=== PATIENT | female | born 1980 | race Caucasian/White ===

== ENCOUNTER 2018-02-17 09:11 | Day surgery (SDC) | payer BC ==
[~2018-02-17 09:11] MED LIST: Lactated Ringers 1,000 ML IV SCH; Lidocaine 2% 5 ML SDV ONE; Midazolam 1 MG/ML 2 ML SDV ONE; Propofol 200 MG/20 ML SDV ONE; fentaNYL 250 MCG/5 ML SDV ONE
--- NOTE | 2018-02-17 09:46 | PCM.PREANE ---
Preanesthetic Assessment - Procedure Proposed Procedure: Hysteroscopy, D and C - Anesthesia/Transfusion/Family Hx Anesthesia History: Prior Anesthesia Without Reaction Family History of Anesthesia Reaction: No Transfusion History: No Prior Transfusion(s) Intubation History: Unknown - Review of Systems General: No Symptoms Pulmonary: Other (E cigarettes daily) Cardiovascular: Other (HTN) Gastrointestinal: Other (IBS) Neurological: Other (back pain; disc disease - lumbar) Other: Reports: Anxiety - Physical Assessment NPO Status Date: 02/16/18 NPO Status Time: 22:00 Height: 5 ft 3.5 in Weight: 211 lb ASA Class: 2 Mental Status: Alert & Oriented x3 Airway Class: Mallampati = 1 Dentition: Reports: Normal Dentition Thyro-Mental Finger Breadths: 4 Mouth Opening Finger Breadths: 3 ROM/Head Extension: Full Lungs: Clear to Auscultation, Normal Respiratory Effort Cardiovascular: Regular Rate, Regular Rhythm, No Murmurs - Lab Values: Laboratory Last Values Urine HCG, Qual NEGATIVE (NEGATIVE) 02/17/18 09:23 - Allergies Allergies/Adverse Reactions: Allergies Allergy/AdvReac Type Severity Reaction Status Date / Time No Known Allergies Allergy Verified 02/12/18 14:15 - Blood Blood Available: No Product(s) Available: None - Anesthesia Plan Pre-Op Medication Ordered: None - Acknowledgements Anesthesia Type Planned: General Anesthesia (LMA) Pt an Appropriate Candidate for the Planned Anesthesia: Yes Alternatives and Risks of Anesthesia Discussed w Pt/Guardian: Yes Pt/Guardian Understands and Agrees with Anesthesia Plan: Yes PreAnesthesia Questionnaire Cardiovascular History: Reports: Hypertension Gastrointestinal History: Reports: Irritable Bowel Syndrome Genitourinary History: Reports: Renal Calculus 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: Musculoskeletal History: Reports: Back Pain, Chronic, Fracture Other Musculoskeletal History: 3 herniated discs Psychiatric History: Reports: Anxiety Endocrine/Metabolic History: Reports: Obesity/BMI 30+ - Past Surgical History Head Surgeries/Procedures: Reports: None GI Surgical History: Reports: Cholecystectomy, Colonoscopy Female Surgical History: Reports: Tubal Ligation Musculoskeletal Surgical History: Reports: Other (See Below) Other Musculoskeletal Surgeries/Procedures:: surgical tx for fx wrist, removal of hardware to wrist - SUBSTANCE USE Smoking Status *Q: Current Every Day Smoker Tobacco Use Within Last Twelve Months: Other (See Below) Other Tobacco Use Within Last Twelve Months: E cigarettes Recreational Drug Use History: No - HOME MEDS Home Medications: Home Meds hydrOXYzine HCl [hydrOXYzine] 25 mg PO DAILY PRN 02/12/18 [History] hydroCHLOROthiazide [Hydrochlorothiazide] 12.5 mg PO DAILY 02/12/18 [History] - CURRENT (IN HOUSE) MEDS Current Meds: Current Medications Lactated Ringer's (Ringers, Lactated) 1,000 mls @ 150 mls/hr IV ASDIRECTED DOYLE Discontinued Medications Fentanyl (Sublimaze) Confirm Administered Dose 250 mcg .ROUTE .STK-MED ONE Stop: 02/17/18 09:09 Lidocaine (Xylocaine-Mpf 2%) Confirm Administered Dose 10 ml .ROUTE .STK-MED ONE Stop: 02/17/18 09:09 Midazolam HCl (Versed 1 Mg/Ml) Confirm Administered Dose 2 mg .ROUTE .STK-MED ONE Stop: 02/17/18 09:09 Propofol (Diprivan 20 Ml) Confirm Administered Dose 400 mg .ROUTE .STK-MED ONE Stop: 02/17/18 09:09
[2018-02-17] MEDS ORDERED: Ferric Subsulfate Topical Soln 8 GM (8 ML) Bottle ONE (10:58)
[2018-02-17] MEDS ORDERED: fentaNYL 100 MCG/2 ML SDV IVPUSH PRN (11:14)
--- NOTE | 2018-02-17 11:30 | PCM.OPNOTE ---
- General Post-Op/Procedure Note Date of Surgery/Procedure: 02/17/18 Operative Procedure(s): Hysteroscopy Dilatation and Currettage Findings: EUA_ 8 week sized anteverted uterus Hysteroscopy showed Bilateral tubal ostia Abundant fluffy endometrium Pre Op Diagnosis: 37 yo P3 with abnormal uterine bleeding Post-Op Diagnosis: same Anesthesia Technique: General LMA Primary Surgeon: Du Recinos Pathology: endometrial currettings Fluid Replacement, Intraop: 800 EBL in mLs: 0 Complications: None Condition: Good
--- NOTE | 2018-02-17 11:35 | PCM.POSTAN ---
POST ANESTHESIA ASSESSMENT - MENTAL STATUS Mental Status: Alert - RESPIRATORY Respiratory Status: Respiratory Rate WNL, Airway Patent, O2 Saturation Stable - CARDIOVASCULAR CV Status: Pulse Rate WNL, Blood Pressure Stable - GASTROINTESTINAL GI Status: No Symptoms - PAIN Pain Score: 0 - POST OP HYDRATION Hydration Status: Adequate & Stable - OBSERVATIONS Free Text/Narrative:: no anesthesia problems
--- NOTE | 2018-02-19 08:29 | OR ---
SURGEON: RADHA ESPITIAUZOROHANWE DATE OF PROCEDURE: 02/17/2018 PREOPERATIVE DIAGNOSIS: Abnormal uterine bleeding. POSTOPERATIVE DIAGNOSIS: Abnormal uterine bleeding. IV FLUIDS: 800. ESTIMATED BLOOD LOSS: Minimal. FINDINGS: EUA shows normal size anteverted uterus. Hysteroscopy showed endometrial and bilateral ostia, which was normal and some sloughing in the endometrium. BRIEF HISTORY ABOUT THE PATIENT: The patient came in complaining of abnormal uterine bleeding. She was having very irregular periods. She had an ultrasound showed a thickened endometrium with heterogenous cystic area on the left cornua. The patient was given the option for saline-enhanced sonogram versus D and C and hysteroscopy. The patient opted for D and C and hysteroscopy. PROCEDURE IN DETAIL: The patient was taken to the operating room where general anesthesia was administered without difficulty. She was placed in the dorsal lithotomy position with the Waylon stirrups. An examination under anesthesia revealed the above-noted findings. A weighted speculum was inserted into the posterior aspect of the vagina. The single-tooth tenaculum was used to grasp the anterior lips of the cervix. The uterus was carefully sounded to about 9 cm. The cervical os was dilated so a MyoSure hysteroscope was introduced under direct visualization. The uterus was distended with normal saline. The aforementioned finding was noted. MyoSure was placed through the hysteroscope channel to assist with some curettage with MyoSure hysteroscope. The hysteroscope was then withdrawn and the curette was placed in and the uterus was curetted in a clockwise fashion until a gritty feeling was noted in all aspects of the uterus. The specimen was sent for pathology. The tenaculum was removed from the cervix and good hemostasis was noted at the puncture site. The patient tolerated the procedure well. All instrument and sponge count were correct x2. The patient was awakened from general anesthesia and was sent to the recovery room in stable condition. She will follow up at . [facility] / [facility]ORGE A /[id number]
== END 2018-02-17 12:45 | disposition home or self-care (01) ==
LOC: MW.SDS 09:11
PROVIDERS: ATTEND Obstetrics & Gynecology
DX: N85.01 Benign endometrial hyperplasia (principal); I10 Essential (primary) hypertension; E66.9 Obesity, unspecified; Z68.35 Body mass index [BMI] 35.0-35.9, adult; F17.290 Nicotine dependence, other tobacco product, uncomplicated; F41.9 Anxiety disorder, unspecified; Z79.899 Other long term (current) drug therapy
CPT/HCPCS: 58558; 81025; 88305; J2250; J2704; J3010; J7120; 00952

== ENCOUNTER 2020-04-25 12:00 | Day surgery (SDC) | payer BC ==
[~2020-04-25 12:00] MED LIST changes: +Sodium Chloride 0.9% 10 ML SDV IV PRN; +Sodium Chloride 0.9% 10 ML Syringe FLUSH PRN; +Sodium Chloride 0.9% 2.5 ML Syringe FLUSH PRN; +fentaNYL 100 MCG/2 ML SDV ONE; -fentaNYL 250 MCG/5 ML SDV ONE
--- NOTE | 2020-04-25 12:27 | PCM.PREANE ---
Preanesthetic Assessment - Anesthesia/Transfusion/Family Hx Anesthesia History: Prior Anesthesia Without Reaction Family History of Anesthesia Reaction: No Transfusion History: No Prior Transfusion(s) Intubation History: Unknown - Review of Systems General: No Symptoms Pulmonary: No Symptoms Cardiovascular: No Symptoms Gastrointestinal: No Symptoms, Other (2 polyps 5 years ago) Neurological: No Symptoms Other: Reports: None - Physical Assessment Vital Signs: Last Vital Signs Temp 35.8 C L 04/25/20 12:15 Pulse 99 04/25/20 12:15 Resp 16 04/25/20 12:15 BP 126/84 04/25/20 12:15 Pulse Ox 96 04/25/20 12:15 Height: 5 ft 4 in Weight: 92.986 kg ASA Class: 2 Mental Status: Alert & Oriented x3 Airway Class: Mallampati = 2 Dentition: Reports: Normal Dentition Thyro-Mental Finger Breadths: 3 Mouth Opening Finger Breadths: 3 ROM/Head Extension: Full Lungs: Clear to Auscultation, Normal Respiratory Effort Cardiovascular: Regular Rate, Regular Rhythm - Lab Values: Laboratory Last Values Urine HCG, Qual NEGATIVE (NEGATIVE) 04/25/20 12:10 - Allergies Allergies/Adverse Reactions: Allergies Allergy/AdvReac Type Severity Reaction Status Date / Time Dairy Products Allergy Stomach Verified 04/25/20 12:20 Upset - Blood Blood Available: No - Anesthesia Plan Pre-Op Medication Ordered: None - Acknowledgements Anesthesia Type Planned: MAC Pt an Appropriate Candidate for the Planned Anesthesia: Yes Alternatives and Risks of Anesthesia Discussed w Pt/Guardian: Yes Pt/Guardian Understands and Agrees with Anesthesia Plan: Yes PreAnesthesia Questionnaire HEENT History: Reports: Other (See Below) Other HEENT History: reading glasses Cardiovascular History: Reports: Hypertension Respiratory History: Reports: None Gastrointestinal History: Reports: Colon Polyp, Irritable Bowel Syndrome Genitourinary History: Reports: Renal Calculus 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: Musculoskeletal History: Reports: Arthritis, Fracture, Other (See Below) (h/o rheumatoid arthritis as [place]- went away on its own) Other Musculoskeletal History: 3 herniated discs, hx fx rt wrist, Neurological History: Reports: Concussion Psychiatric History: Reports: Anxiety, Depression Endocrine/Metabolic History: Reports: Obesity/BMI 30+ (BMI 35.2) Hematologic History: Reports: None Immunologic History: Reports: None Oncologic (Cancer) History: Reports: None Dermatologic History: Reports: None - Infectious Disease History Infectious Disease History: Reports: None - Past Surgical History Head Surgeries/Procedures: Reports: None HEENT Surgical History: Reports: None Cardiovascular Surgical History: Reports: None Respiratory Surgical History: Reports: None GI Surgical History: Reports: Cholecystectomy, Colonoscopy (5 years ago - 2 polyps) Female Surgical History: Reports: Tubal Ligation Other Female Surgeries/Procedures: ovarian cystectomy Endocrine Surgical History: Reports: None Neurological Surgical History: Reports: None Musculoskeletal Surgical History: Reports: Other (See Below) Other Musculoskeletal Surgeries/Procedures:: surgical tx for fx wrist, removal of hardware to wrist Oncologic Surgical History: Reports: None Dermatological Surgical History: Reports: None - SUBSTANCE USE Tobacco Use Status *Q: Light Tobacco User Tobacco Use Within Last Twelve Months: Vaping Recreational Drug Use History: No - HOME MEDS Home Medications: Home Meds Lisinopril/Hydrochlorothiazide [Lisinopril-Hctz 20-25 mg Tab] 1 tab PO DAILY 04/19/20 [History] Sertraline HCl 100 mg PO DAILY 04/19/20 [History] - CURRENT (IN HOUSE) MEDS Current Meds: Current Medications Lactated Ringer's (Ringers, Lactated) 1,000 mls @ 125 mls/hr IV ASDIRECTED DOYLE Last Admin: 04/25/20 12:21 Dose: 125 mls/hr Documented by: Sodium Chloride (Saline Flush) 10 ml FLUSH ASDIRECTED PRN PRN Reason: Keep Vein Open Sodium Chloride (Saline Flush) 2.5 ml FLUSH ASDIRECTED PRN PRN Reason: Keep Vein Open Sodium Chloride (Saline Flush) 10 ml FLUSH ASDIRECTED PRN PRN Reason: Keep Vein Open Sodium Chloride (Saline Flush) 2.5 ml FLUSH ASDIRECTED PRN PRN Reason: Keep Vein Open Sodium Chloride (Normal Saline) 10 ml IV ASDIRECTED PRN PRN Reason: IV Use Discontinued Medications Fentanyl (Sublimaze) Confirm Administered Dose 100 mcg .ROUTE .STK-MED ONE Stop: 04/25/20 11:42 Lidocaine (Xylocaine-Mpf 2%) Confirm Administered Dose 5 ml .ROUTE .STK-MED ONE Stop: 04/25/20 11:42 Midazolam HCl (Versed 1 Mg/Ml) Confirm Administered Dose 2 mg .ROUTE .STK-MED ONE Stop: 04/25/20 11:42 Propofol (Diprivan 20 Ml) Confirm Administered Dose 400 mg .ROUTE .STK-MED ONE Stop: 04/25/20 11:42
--- NOTE | 2020-04-25 13:23 | PCM.POSTAN ---
POST ANESTHESIA ASSESSMENT - MENTAL STATUS Mental Status: Alert, Oriented - VITAL SIGNS Vital Signs: Last Vital Signs Temp 35.8 C L 04/25/20 12:15 Pulse 72 04/25/20 13:16 Resp 17 04/25/20 13:16 BP 98/67 04/25/20 13:16 Pulse Ox 95 04/25/20 13:16 - RESPIRATORY Respiratory Status: Respiratory Rate WNL, Airway Patent, O2 Saturation Stable - CARDIOVASCULAR CV Status: Pulse Rate WNL, Blood Pressure Stable - GASTROINTESTINAL GI Status: No Symptoms - PAIN Pain Score: 0 - POST OP HYDRATION Hydration Status: Adequate & Stable - OBSERVATIONS Free Text/Narrative:: No anesthesia problems
--- NOTE | 2020-04-25 13:24 | PCM.OPNOTE ---
- General Post-Op/Procedure Note Date of Surgery/Procedure: 04/25/20 Operative Procedure(s): Diagnostic colonoscopy Findings: Descending colon polyp Pre Op Diagnosis: History of colon polyps Post-Op Diagnosis: Descending colon polyp Anesthesia Technique: MAC Primary Surgeon: Ritika Llanes Condition: Good Free Text/Narrative:: Intake & Output 04/24/20 04/25/20 04/25/20 22:59 06:59 14:59 Intake Total 500 Balance 500
--- NOTE | 2020-04-25 13:38 | PCM48HPAN ---
Post Anesthesia Note - EVALUATION WITHIN 48HRS OF ANESTHETIC Vital Signs in Normal Range: Yes Patient Participated in Evaluation: Yes Respiratory Function Stable: Yes Airway Patent: Yes Cardiovascular Function Stable: Yes Hydration Status Stable: Yes Pain Control Satisfactory: Yes Nausea and Vomiting Control Satisfactory: Yes Mental Status Recovered: Yes Vital Signs: Last Vital Signs Temp 36.4 C 04/25/20 13:25 Pulse 86 04/25/20 13:25 Resp 14 04/25/20 13:25 BP 110/80 04/25/20 13:25 Pulse Ox 95 04/25/20 13:25 - COMMENTS/OBSERVATIONS Free Text/Narrative:: No anesthesia problems
--- NOTE | 2020-04-25 14:07 | OR ---
SURGEON: RITIKA LLANES MD DATE OF PROCEDURE: 04/25/2020 PREOPERATIVE DIAGNOSIS: History of colon polyps. POSTOPERATIVE DIAGNOSIS: Descending colon polyp. PROCEDURE PERFORMED: Diagnostic colonoscopy with polypectomy. PRIMARY SURGEON: Ritika Llanes MD ANESTHESIA: MAC. INSTRUMENT USED: Olympus colonoscope. EXTENT OF EXAM: To the cecum. PREPARATION: Good. LIMITATIONS: None. INDICATIONS FOR EXAMINATION: The patient is a 39-year-old female with a history of colon polyps. She is due for a repeat colonoscopy. I explained the procedure, expected perioperative course, and the risks. She verbalized understanding and wishes to proceed. PROCEDURE IN DETAIL: The patient was brought into the endoscopy suite and placed in the left lateral decubitus position. A time-out was completed verifying the patient's name, age, date of , allergies, and procedure to be performed. Monitored anesthesia care was induced and continuous oxygen was provided via nasal cannula throughout the procedure. After adequate sedation was achieved, a digital rectal exam was performed. This exam was within normal limits. A well-lubricated colonoscope was inserted in the rectum and advanced under direct visualization to the level of the cecum. The cecum was identified by both visual and anatomic landmarks. A photograph was taken of the cecal cap; however, I was unable to retroflex the scope within the cecum due to looping of the scope more proximally. The scope was then fully withdrawn while examining the color, texture, anatomy, and integrity of the mucosa from the cecum to the anal canal. The patient was found to have a proximal descending colon polyp which was small and sessile. This was removed in piecemeal fashion using cold biopsy forceps. The remainder of the colonoscopy was normal. The scope was then brought into the rectum and retroflexed to allow visualization of the anal canal opening. This appeared normal and a photograph was taken. The scope was then straightened out and fully withdrawn. The cecum to anus time was 10 minutes. The patient tolerated the procedure well and was transferred to PACU in stable condition. ENDOSCOPIC DIAGNOSIS: Descending colon polyp. RECOMMENDATIONS: Follow up in clinic in 2 weeks. ERNESTO JULES /[id number]
== END 2020-04-25 13:46 | disposition home or self-care (01) ==
LOC: MW.SDS 12:00
PROVIDERS: ATTEND Surgery
DX: Z12.11 Encounter for screening for malignant neoplasm of colon (principal); K63.5 Polyp of colon; I10 Essential (primary) hypertension; F41.9 Anxiety disorder, unspecified; F32.9 Major depressive disorder, single episode, unspecified; E66.9 Obesity, unspecified; Z68.35 Body mass index [BMI] 35.0-35.9, adult; Z91.011 Allergy to milk products; Z90.49 Acquired absence of other specified parts of digestive tract; Z98.890 Other specified postprocedural states; Z79.899 Other long term (current) drug therapy
CPT/HCPCS: 45380; 81025; J2001; J2250; J2704; J3010; J7120; 00812; 88305

== ENCOUNTER 2020-06-27 06:37 | Day surgery (SDC) | payer BC ==
[~2020-06-27 06:37] MED LIST changes: -Lidocaine 2% 5 ML SDV ONE; -Midazolam 1 MG/ML 2 ML SDV ONE; -Propofol 200 MG/20 ML SDV ONE; -Sodium Chloride 0.9% 10 ML SDV IV PRN; -Sodium Chloride 0.9% 10 ML Syringe FLUSH PRN; -Sodium Chloride 0.9% 2.5 ML Syringe FLUSH PRN; +ceFAZolin 2 GM in Premix Bag 1 BAG IV ONE; -fentaNYL 100 MCG/2 ML SDV ONE
[2020-06-27] MEDS ORDERED: Midazolam 1 MG/ML 2 ML SDV ONE (06:40)
[2020-06-27] MEDS ORDERED: Propofol 200 MG/20 ML SDV ONE (06:40)
[2020-06-27] MEDS ORDERED: fentaNYL 250 MCG/5 ML SDV ONE (06:42)
[2020-06-27] MEDS ORDERED: Ondansetron 4 MG/2 ML SDV ONE (06:52)
[2020-06-27] MEDS ORDERED: Dexamethasone 4 MG/ML 5 ML MDV ONE (06:52)
[2020-06-27] MEDS ORDERED: ceFAZolin 1 GM Vial ONE (06:59)
[2020-06-27] MEDS ORDERED: Sodium Chloride 0.9% 20 ML ONE (06:59)
[2020-06-27] MEDS ORDERED: Succinylcholine/Sod PF 100 MG/5 ML SYRINGE IV ONE (07:21)
[2020-06-27] MEDS ORDERED: Rocuronium Bromide 50 MG/5 ML Syringe ONE (07:21)
--- NOTE | 2020-06-27 07:22 | PCM.PREANE ---
Preanesthetic Assessment - Anesthesia/Transfusion/Family Hx Anesthesia History: Prior Anesthesia Without Reaction Family History of Anesthesia Reaction: No Transfusion History: No Prior Transfusion(s) Intubation History: Unknown - Review of Systems General: No Symptoms Pulmonary: No Symptoms Cardiovascular: No Symptoms Gastrointestinal: No Symptoms Neurological: No Symptoms Other: Reports: None - Physical Assessment Height: 5 ft 4.5 in Weight: 92.079 kg ASA Class: 2 Mental Status: Alert & Oriented x3 Airway Class: Mallampati = 3 Dentition: Reports: Normal Dentition Thyro-Mental Finger Breadths: 3 Mouth Opening Finger Breadths: 2 ROM/Head Extension: Full Lungs: Clear to Auscultation, Normal Respiratory Effort Cardiovascular: Regular Rate, Regular Rhythm - Allergies Allergies/Adverse Reactions: Allergies Allergy/AdvReac Type Severity Reaction Status Date / Time Dairy Products Allergy Stomach Verified 06/21/20 09:22 Upset - Blood Blood Available: No - Anesthesia Plan Pre-Op Medication Ordered: None - Acknowledgements Anesthesia Type Planned: General Anesthesia Pt an Appropriate Candidate for the Planned Anesthesia: Yes Alternatives and Risks of Anesthesia Discussed w Pt/Guardian: Yes Pt/Guardian Understands and Agrees with Anesthesia Plan: Yes PreAnesthesia Questionnaire HEENT History: Reports: Other (See Below) Other HEENT History: reading glasses Cardiovascular History: Reports: Hypertension Respiratory History: Reports: None Gastrointestinal History: Reports: Colon Polyp, Irritable Bowel Syndrome Genitourinary History: Reports: Renal Calculus 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: Musculoskeletal History: Reports: Arthritis, Back Pain, Chronic, Fracture, Other (See Below) Other Musculoskeletal History: 3 herniated discs, hx fx rt wrist, Neurological History: Reports: Concussion Psychiatric History: Reports: Anxiety, Depression Endocrine/Metabolic History: Reports: Obesity/BMI 30+ (BMI 34.3) Hematologic History: Reports: None Immunologic History: Reports: None Oncologic (Cancer) History: Reports: None Dermatologic History: Reports: None - Infectious Disease History Infectious Disease History: Reports: None - Past Surgical History Head Surgeries/Procedures: Reports: None HEENT Surgical History: Reports: None Cardiovascular Surgical History: Reports: None Respiratory Surgical History: Reports: None GI Surgical History: Reports: Cholecystectomy, Colonoscopy Female Surgical History: Reports: Tubal Ligation, Other (See Below) Other Female Surgeries/Procedures: hysteroscopy Endocrine Surgical History: Reports: None Neurological Surgical History: Reports: None Musculoskeletal Surgical History: Reports: Carpal Tunnel (right), Other (See Below) Other Musculoskeletal Surgeries/Procedures:: surgical tx for fx wrist, removal of hardware to wrist Oncologic Surgical History: Reports: None Dermatological Surgical History: Reports: None - SUBSTANCE USE Tobacco Use Status *Q: Current Every Day Tobacco User Tobacco Use Within Last Twelve Months: Vaping - HOME MEDS Home Medications: Home Meds Lisinopril/Hydrochlorothiazide [Lisinopril-Hctz 20-25 mg Tab] 1 tab PO BEDTIME 04/19/20 [History] Sertraline HCl 100 mg PO BEDTIME 04/19/20 [History] Cyclobenzaprine HCl 10 mg PO ASDIRECTED PRN 06/21/20 [History] Ibuprofen 600 mg PO ASDIRECTED PRN 06/21/20 [History] - CURRENT (IN HOUSE) MEDS Current Meds: Current Medications Lactated Ringer's (Ringers, Lactated) 1,000 mls @ 125 mls/hr IV ASDIRECTED DOYLE Discontinued Medications Cefazolin Sodium (Ancef) Confirm Administered Dose 2 gm .ROUTE .STK-MED ONE Stop: 06/27/20 07:00 Dexamethasone (Dexamethasone) Confirm Administered Dose 20 mg .ROUTE .STK-MED ONE Stop: 06/27/20 06:53 Fentanyl (Sublimaze) Confirm Administered Dose 250 mcg .ROUTE .STK-MED ONE Stop: 06/27/20 06:43 Cefazolin Sodium/Dextrose 2 gm (/ Premix) 50 mls @ 100 mls/hr IV ONETIME ONE Stop: 06/27/20 06:48 Sodium Chloride (Normal Saline) Confirm Administered Dose 20 mls @ as directed .ROUTE .STK-MED ONE Stop: 06/27/20 07:00 Lidocaine HCl (Xylocaine-Mpf 1%) Confirm Administered Dose 5 ml .ROUTE .STK-MED ONE Stop: 06/27/20 06:53 Midazolam HCl (Versed 1 Mg/Ml) Confirm Administered Dose 2 mg .ROUTE .STK-MED ONE Stop: 06/27/20 06:41 Ondansetron HCl (Zofran) Confirm Administered Dose 4 mg .ROUTE .STK-MED ONE Stop: 06/27/20 06:53 Propofol (Diprivan 20 Ml) Confirm Administered Dose 200 mg .ROUTE .STK-MED ONE Stop: 06/27/20 06:41
[2020-06-27] MEDS ORDERED: Fluorescein 5 ML Vial ONE (07:26)
[2020-06-27] MEDS ORDERED: Lidocaine 1% with EPINEPHrine 1:100,000 20 ML MDV ONE (07:47)
[2020-06-27] MEDS ORDERED: Phenylephrine 1% 10 MG/ML SDV ONE (08:35)
[2020-06-27] MEDS ORDERED: Glycopyrrolate 0.2 MG/ML SDV ONE ×2 (08:51→08:54)
[2020-06-27] MEDS ORDERED: Furosemide 40 MG/4 ML VIAL ONE (09:00)
[2020-06-27] MEDS ORDERED: Acetaminophen 1,000 MG in Premix Bag 1 BAG IV ONE (10:08)
[2020-06-27] MEDS ORDERED: Promethazine 25 MG/ML SDV IM PRN (10:10)
[2020-06-27] MEDS ORDERED: Ketorolac 30 MG/ML SDV IVPUSH ONE (10:10)
[2020-06-27] MEDS ORDERED: Ondansetron 4 MG/2 ML SDV IVPUSH PRN (10:10)
[2020-06-27] MEDS ORDERED: Ketorolac 30 MG/ML SDV IVPUSH PRN (10:10)
[2020-06-27] MEDS: fentaNYL 100 MCG/2 ML SDV IVPUSH PRN ×3 (10:14→10:31)
[2020-06-27] MEDS ORDERED: Lactated Ringers 1,000 ML IV SCH (10:15)
--- NOTE | 2020-06-27 10:20 | PCM.OPNOTE ---
- General Post-Op/Procedure Note Date of Surgery/Procedure: 06/27/20 Operative Procedure(s): Total vaginal hysterectomy Findings: Normal sized anteverted uterus Pre Op Diagnosis: 39yo @ 39w4d with Benign endometrial hyperplasia Post-Op Diagnosis: same Anesthesia Technique: General ET Tube Primary Surgeon: Du Recinos Secondary Surgeon: Génesis Barton Anesthesia Provider: Khang Evans [facility] Pathology: Uterus and cervix Fluid Replacement, Intraop: 1,700 Output, Urine Amount: 100 EBL in mLs: 400 Complications: None Condition: Good Free Text/Narrative:: Intake & Output 06/26/20 06/27/20 06/27/20 22:59 06:59 14:59 Output Total 100 Balance -100
--- NOTE | 2020-06-27 10:52 | PCM.POSTAN ---
POST ANESTHESIA ASSESSMENT - MENTAL STATUS Mental Status: Alert, Oriented - VITAL SIGNS Vital Signs: Last Vital Signs Temp 36.7 C 06/27/20 09:55 Pulse 97 06/27/20 10:35 Resp 9 L 06/27/20 10:35 BP 112/72 06/27/20 10:35 Pulse Ox 96 06/27/20 10:35 - RESPIRATORY Respiratory Status: Respiratory Rate WNL, Airway Patent, O2 Saturation Stable - CARDIOVASCULAR CV Status: Pulse Rate WNL, Blood Pressure Stable - GASTROINTESTINAL GI Status: No Symptoms - PAIN Pain Score: 5 - POST OP HYDRATION Hydration Status: Adequate & Stable - OBSERVATIONS Free Text/Narrative:: No anesthesia problems
[2020-06-27] MEDS: Morphine 4 MG/ML Syringe IVPUSH PRN ×3 (11:15→23:30)
[2020-06-27] MEDS: Metoclopramide 10 MG/2 ML SDV IVPUSH SCH ×2 (11:20→17:57)
[2020-06-27] MEDS: oxyCODONE 5 MG Tab PO PRN ×2 (17:57→21:59)
[2020-06-28] MEDS: Metoclopramide 10 MG/2 ML SDV IVPUSH SCH ×2 (02:35→09:37)
[2020-06-28] MEDS: oxyCODONE 5 MG Tab PO PRN ×2 (03:26→08:25)
[2020-06-28] MEDS: Morphine 4 MG/ML Syringe IVPUSH PRN ×2 (06:06→09:37)
[2020-06-28 06:25] LABS: BLOOD UREA NITROGEN,BUN 11 mg/dL (7.0-18.0); CARBON DIOXIDE,CO2 31.2 mmol/L (21.0-32.0); CHLORIDE,CL 104 mmol/L (98-107); GLUCOSE RANDOM 116 mg/dL (74-106); POTASSIUM,K 4.3 mmol/L (3.5-5.1); SODIUM,NA 140 mmol/L (136-145)
--- NOTE | 2020-06-28 07:11 | OR ---
SURGEON: RADHA RECINOS DATE OF PROCEDURE: 06/27/2020 PREOPERATIVE DIAGNOSES: A 39-year-old para 3 with recurrent benign endometrial hyperplasia. POSTOPERATIVE DIAGNOSIS: A 39-year-old para 3 with recurrent benign endometrial hyperplasia. PROCEDURE: Vaginal hysterectomy and cystoscopy. ANESTHESIA: Endotracheal general. PRIMARY SURGEON: Dr. Radha Recinos SECONDARY SURGEON: Génesis Barton M.D. ESTIMATED BLOOD LOSS: 400. IV FLUID: 1700. URINE OUTPUT: 100. NOTES AND FINDINGS: Normal-sized anteverted uterus. Cystoscopy showed normal bladder cavity and bladder intact with bilateral ureteral jets noted. BRIEF HISTORY ABOUT THE PATIENT: She is a 39-year-old para 3, previous x3, history of BTL, who was seen a year earlier for benign endometrial hyperplasia. She had received 2 negative biopsy results after being placed on progesterone suppression. The patient was seen for annual appointment and she was complaining of amenorrhea. She had ultrasound done, showed a thickened endometrium, and then had a biopsy done which showed a benign endometrial hyperplasia. Because of this, the patient was given option of conservative management, but because of her previous history, she declined the conservative management and wanted management with hysterectomy. She was explained the risks, benefits, and alternatives and she decided to proceed. DESCRIPTION OF PROCEDURE: The patient was taken to the operating room, where general anesthesia was performed without difficulty. She was placed in the dorsal lithotomy position with Waylon stirrups. She was prepared and draped in normal sterile fashion. A Jacobo catheter was placed. Then, the cervix was exposed with the aid of the weighted speculum in the posterior fornix and the right angle retraction in the anterior fornix. A tenaculum was used to grasp the cervix. A 2nd injection of 1% lidocaine with epi was done circumferentially around the cervix and the vagina. After this, a circumferential incision was made around the cervix to separate the cervix from the vagina. A posterior colpotomy was then done by tenting of the cervix and the posterior cul-de-sac was entered without difficulty. A long weighted speculum was then placed into the posterior cul-de- sac and an anterior colpotomy was then created. Then, the right angle was placed into the vesicouterine space in the anterior uterus to protect the bladder. Then, a Leslie was used to clamp the uterosacral ligament. It was clamped, cut, and suture ligated with 2-0 Vicryl. Again, the cardinal was clamped, cut, and suture ligated. The uterine vessels were clamped, cut, and suture ligated. The ovarian ligament with the cornua of the tube was clamped and cut and suture ligated. This was done on the right and the left. The uterus was removed from the vagina. After this was done, the bowel was removed from the operating field, and the pedicles were inspected, they were noted to be hemostatic, so the suture was cut. Then, the uterosacral was then attached to the posterior vaginal wall and the hemostasis was also noted at this point too. Then, the cup was closed from anterior to posterior with an 0 Polysorb with continuous interlocking fashion. After this, then the cystoscopy was performed with the cystoscope placed into the bladder. Bilateral ureteral jets were noted. Prior to the cystoscopy, sodium fluorescein was injected with Lasix, and after cystoscopy was performed, the speculum was then placed into the vagina to inspect. Hemostasis was noted. The patient tolerated the procedure well and was taken to the recovery room in stable condition. COURTNEY / JORGE A /[id number]
--- NOTE | 2020-06-28 08:16 | PCM.SURGPN ---
- General Info Date of Service: 06/28/20 Date of Surgery/Procedure: 06/27/20 POD#: 1 Post-Op Diagnosis: Benign endometrial hyperplasia s/p TVH Functional Status: Reports: Pain Controlled, Tolerating Diet, Ambulating, Urinating - Review of Systems General: Reports: No Symptoms HEENT: Reports: No Symptoms Pulmonary: Reports: No Symptoms Cardiovascular: Reports: No Symptoms Gastrointestinal: Reports: No Symptoms Genitourinary: Reports: No Symptoms Musculoskeletal: Reports: No Symptoms Skin: Reports: No Symptoms Neurological: Reports: No Symptoms Psychiatric: Reports: No Symptoms - Patient Data Vitals - Most Recent: Last Vital Signs Temp 36.3 C 06/28/20 04:00 Pulse 75 06/28/20 04:00 Resp 17 06/28/20 04:00 BP 101/65 06/28/20 04:00 Pulse Ox 95 06/28/20 04:00 Weight - Most Recent: 92.079 kg I&O - Last 24 Hours: Intake & Output 06/27/20 06/28/20 06/28/20 22:59 06:59 14:59 Intake Total 2210 2000 Output Total 620 2500 Balance 1590 -500 Lab Results Last 24 Hrs: Laboratory Results - last 24 hr 06/27/20 06/28/20 06/28/20 Range/Units 07:06 05:27 05:27 WBC 14.13 H (4.0-11.0) K/uL RBC 3.67 L (4.30-5.90) M/uL Hgb 11.9 L (12.0-16.0) g/dL Hct 37.2 (36.0-46.0) % MCV 101.4 H (80.0-98.0) fL MCH 32.4 H (27.0-32.0) pg MCHC 32.0 (31.0-37.0) g/dL RDW Std Deviation 49.3 (28.0-62.0) fl RDW Coeff of Simon 13 (11.0-15.0) % Plt Count 300 (150-400) K/uL MPV 10.10 (7.40-12.00) fL Neut % (Auto) 74.9 (48.0-80.0) % Lymph % (Auto) 16.4 (16.0-40.0) % [place] % (Auto) 8.4 (0.0-15.0) % Eos % (Auto) 0.2 (0.0-7.0) % Baso % (Auto) 0.1 (0.0-1.5) % Neut # (Auto) 10.6 H (1.4-5.7) K/uL Lymph # (Auto) 2.3 (0.6-2.4) K/uL [place] # (Auto) 1.2 H (0.0-0.8) K/uL Eos # (Auto) 0.0 (0.0-0.7) K/uL Baso # (Auto) 0.0 (0.0-0.1) K/uL Nucleated RBC % 0.0 /100WBC Nucleated RBCs # 0 K/uL Sodium 140 (136-145) mmol/L Potassium 4.3 (3.5-5.1) mmol/L Chloride 104 (98-107) mmol/L Carbon Dioxide 31.2 (21.0-32.0) mmol/L BUN 11 (7.0-18.0) mg/dL Creatinine 0.8 (0.6-1.0) mg/dL Est Cr Clr Drug Dosing 83.24 mL/min Estimated GFR (MDRD) > 60.0 ml/min Glucose 116 H (74-106) mg/dL Calcium 8.1 L (8.5-10.1) mg/dL Total Bilirubin 0.5 (0.2-1.0) mg/dL AST 38 H (15-37) IU/L ALT 117 H (14-63) IU/L Alkaline Phosphatase 66 (46-116) U/L Total Protein 6.2 L (6.4-8.2) g/dL Albumin 2.8 L (3.4-5.0) g/dL Globulin 3.4 (2.6-4.0) g/dL Albumin/Globulin Ratio 0.8 L (0.9-1.6) Blood Type O POSITIVE Antibody Screen NEGATIVE Med Orders - Current: Current Medications Lactated Ringer's (Ringers, Lactated) 1,000 mls @ 125 mls/hr IV ASDIRECTED [facility] Last Admin: 06/27/20 07:06 Dose: 125 mls/hr Documented by: Lactated Ringer's (Ringers, Lactated) 1,000 mls @ 125 mls/hr IV ASDIRECTED [facility] Ketorolac Tromethamine (Toradol) 30 mg IVPUSH Q6H PRN PRN Reason: Pain (severe 7-10) Stop: 07/02/20 10:10 Last Admin: 06/27/20 14:56 Dose: 30 mg Documented by: Metoclopramide HCl (Reglan) 10 mg IVPUSH Q8H [facility] Last Admin: 06/28/20 02:35 Dose: 10 mg Documented by: Morphine Sulfate (Morphine) 4 mg IVPUSH Q2H PRN PRN Reason: Pain (severe 7-10) Last Admin: 06/28/20 06:06 Dose: 4 mg Documented by: Ondansetron HCl (Zofran) 4 mg IVPUSH Q6H PRN PRN Reason: Nausea/Vomiting Oxycodone HCl (Oxycodone) 5 mg PO Q4H PRN PRN Reason: Pain (moderate 4-6) Last Admin: 06/28/20 03:26 Dose: 5 mg Documented by: Promethazine HCl (Phenergan) 25 mg IM Q6H PRN PRN Reason: Nausea/Vomiting Discontinued Medications Cefazolin Sodium (Ancef) Confirm Administered Dose 2 gm .ROUTE .STK-MED ONE Stop: 06/27/20 07:00 Dexamethasone (Dexamethasone) Confirm Administered Dose 20 mg .ROUTE .STK-MED ONE Stop: 06/27/20 06:53 Fentanyl (Sublimaze) Confirm Administered Dose 250 mcg .ROUTE .STK-MED ONE Stop: 06/27/20 06:43 Fentanyl (Sublimaze) 50 mcg IVPUSH Q5M PRN PRN Reason: Pain (severe 7-10) Stop: 06/27/20 12:00 Last Admin: 06/27/20 10:31 Dose: 50 mcg Documented by: Fluorescein Sodium (Ak-Fluor) Confirm Administered Dose 5 ml .ROUTE .STK-MED ONE Stop: 06/27/20 07:27 Furosemide (Lasix) Confirm Administered Dose 40 mg .ROUTE .STK-MED ONE Stop: 06/27/20 09:01 Glycopyrrolate (Robinul) Confirm Administered Dose 0.2 mg .ROUTE .STK-MED ONE Stop: 06/27/20 08:52 Glycopyrrolate (Robinul) Confirm Administered Dose 0.2 mg .ROUTE .STK-MED ONE Stop: 06/27/20 08:55 Cefazolin Sodium/Dextrose 2 gm (/ Premix) 50 mls @ 100 mls/hr IV ONETIME ONE Stop: 06/27/20 06:48 Last Admin: 06/27/20 11:31 Dose: Not Given Documented by: Sodium Chloride (Normal Saline) Confirm Administered Dose 20 mls @ as directed .ROUTE .STK-MED ONE Stop: 06/27/20 07:00 Acetaminophen 1,000 mg/ Premix 100 mls @ 400 mls/hr IV NOW ONE Stop: 06/27/20 10:22 Last Admin: 06/27/20 10:16 Dose: 400 mls/hr Documented by: Ketorolac Tromethamine (Toradol) 30 mg IVPUSH ONETIME ONE Stop: 06/27/20 10:11 Last Admin: 06/27/20 10:25 Dose: 30 mg Documented by: Lidocaine HCl (Xylocaine-Mpf 1%) Confirm Administered Dose 5 ml .ROUTE .STK-MED ONE Stop: 06/27/20 06:53 Lidocaine/Epinephrine (Xylocaine 1% With Epinephrine 1:100,000) Confirm Administered Dose 20 ml .ROUTE .STK-MED ONE Stop: 06/27/20 07:48 Midazolam HCl (Versed 1 Mg/Ml) Confirm Administered Dose 2 mg .ROUTE .STK-MED ONE Stop: 06/27/20 06:41 Ondansetron HCl (Zofran) Confirm Administered Dose 4 mg .ROUTE .STK-MED ONE Stop: 06/27/20 06:53 Phenylephrine HCl (Vijay-Synephrine) Confirm Administered Dose 10 mg .ROUTE .STK- MED ONE Stop: 06/27/20 08:36 Propofol (Diprivan 20 Ml) Confirm Administered Dose 200 mg .ROUTE .STK-MED ONE Stop: 06/27/20 06:41 Rocuronium [place] (Rocuronium [place]) Confirm Administered Dose 50 mg .ROUTE .STK-MED ONE Stop: 06/27/20 07:22 - Exam General: Alert HEENT: Pupils Equal Neck: Supple Lungs: Clear to Auscultation Cardiovascular: Regular Rate, Regular Rhythm GI/Abdominal Exam: Normal Bowel Sounds Extremities: Normal Inspection Psy/Mental Status: Alert Sepsis Event Note - Evaluation Sepsis Screening Result: No Definite Risk - Focused Exam Vital Signs: Vital Signs Temp Pulse Resp BP Pulse Ox 06/28/20 04:00 36.3 C 75 17 101/65 95 06/28/20 00:00 36.3 C 81 17 103/71 95 06/27/20 20:43 36.4 C 90 18 101/57 L 95 - Problem List & Annotations (1) S/P hysterectomy SNOMED Code(s): 211312007, 218131324, 838080258 Code(s): Z90.710 - ACQUIRED ABSENCE OF BOTH CERVIX AND UTERUS Status: Acute Current Visit: Yes - Problem List Review Problem List Initiated/Reviewed/Updated: Yes - My Orders Last 24 Hours: Active Orders 24 hr Category Date Time Status Patient Status [ADT] Routine ADT 06/27/20 10:10 Active Notify Provider Intake and Out [RC] ASDIRECTED Care 06/27/20 10:10 Active Notify Provider Vital Signs [RC] ASDIRECTED Care 06/27/20 10:10 Active Oxygen Therapy [RC] ASDIRECTED Care 06/27/20 10:10 Active RT Incentive Spirometry [RC] Q2HWA Care 06/27/20 10:10 Active Up With Assistance [RC] PER UNIT ROUTINE Care 06/27/20 10:10 Active Up ad Georgina [RC] PER UNIT ROUTINE Care 06/27/20 10:10 Active Urinary Catheter Removal [RC] Per Unit Routine Care 06/27/20 10:10 Active Vital Signs [RC] Q4H Care 06/27/20 10:10 Active Regular Diet [DIET] Diet 06/27/20 Lunch Active Ketorolac [Toradol] Med 06/27/20 10:10 Active 30 mg IVPUSH Q6H PRN Lactated Ringers [Ringers, Lactated] 1,000 ml Med 06/27/20 10:15 Active IV ASDIRECTED Metoclopramide [Reglan] Med 06/27/20 10:15 Active 10 mg IVPUSH Q8H Morphine Med 06/27/20 10:10 Active 4 mg IVPUSH Q2H PRN Ondansetron [Zofran] Med 06/27/20 10:10 Active 4 mg IVPUSH Q6H PRN Promethazine [Phenergan] Med 06/27/20 10:10 Active 25 mg IM Q6H PRN oxyCODONE Med 06/27/20 10:10 Active 5 mg PO Q4H PRN Peripheral IV Discontinue [OM.PC] Routine Oth 06/27/20 10:10 Ordered Sequential Compression Device [OM.PC] Per Unit Routine Oth 06/27/20 10:10 Ordered Resuscitation Status Routine Resus Stat 06/27/20 10:10 Ordered Medication Orders Lactated Ringer's (Ringers, Lactated) 1,000 mls @ 125 mls/hr IV ASDIRECTED [facility] Last Admin: 06/27/20 07:06 Dose: 125 mls/hr Documented by: MILLI Lactated Ringer's (Ringers, Lactated) 1,000 mls @ 125 mls/hr IV ASDIRECTED [facility] Ketorolac Tromethamine (Toradol) 30 mg IVPUSH Q6H PRN PRN Reason: Pain (severe 7-10) Stop: 07/02/20 10:10 Last Admin: 06/27/20 14:56 Dose: 30 mg Documented by: KYLAH Metoclopramide HCl (Reglan) 10 mg IVPUSH Q8H [facility] Last Admin: 06/28/20 02:35 Dose: 10 mg Documented by: Admin: 06/27/20 17:57 Dose: 10 mg Documented by: Admin: 06/27/20 11:20 Dose: 10 mg Documented by: KYLAH Morphine Sulfate (Morphine) 4 mg IVPUSH Q2H PRN PRN Reason: Pain (severe 7-10) Last Admin: 06/28/20 06:06 Dose: 4 mg Documented by: Admin: 06/27/20 23:30 Dose: 4 mg Documented by: Admin: 06/27/20 15:25 Dose: 4 mg Documented by: Admin: 06/27/20 11:15 Dose: 4 mg Documented by: KYLAH Ondansetron HCl (Zofran) 4 mg IVPUSH Q6H PRN PRN Reason: Nausea/Vomiting Oxycodone HCl (Oxycodone) 5 mg PO Q4H PRN PRN Reason: Pain (moderate 4-6) Last Admin: 06/28/20 03:26 Dose: 5 mg Documented by: Admin: 06/27/20 21:59 Dose: 5 mg Documented by: Admin: 06/27/20 17:57 Dose: 5 mg Documented by: [email or web address] Promethazine HCl (Phenergan) 25 mg IM Q6H PRN PRN Reason: Nausea/Vomiting - Assessment Assessment (Free Text/Narrative):: 39yo P3 s/p TVH for Benign Endometrial Hyperplasia POD 1 Pain control is good Ambulating Voiding and tolerating regular diet H/H this am 11.9 Cr: 0.8 , AST and ALT trending down - Plan Plan (Free Text/Narrative):: Routine postop care Discharge home Pain control as needed Emani
[2020-06-28] MEDS ORDERED: Enoxaparin 40 MG/0.4 ML Syringe SUBCUT ONE (08:20)
--- NOTE | 2020-06-28 08:30 | PCM48HPAN ---
Post Anesthesia Note - EVALUATION WITHIN 48HRS OF ANESTHETIC Vital Signs in Normal Range: Yes Patient Participated in Evaluation: Yes Respiratory Function Stable: Yes Airway Patent: Yes Cardiovascular Function Stable: Yes Hydration Status Stable: Yes Pain Control Satisfactory: Yes Nausea and Vomiting Control Satisfactory: Yes Mental Status Recovered: Yes Vital Signs: Last Vital Signs Temp 36.3 C 06/28/20 04:00 Pulse 75 06/28/20 04:00 Resp 17 06/28/20 04:00 BP 101/65 06/28/20 04:00 Pulse Ox 95 06/28/20 04:00 - COMMENTS/OBSERVATIONS Free Text/Narrative:: No anesthesia problems
== END 2020-06-28 10:00 | disposition home or self-care (01) ==
LOC: MW.SDS 06:37 → MW.MS 11:10 → MW.SDS 06-28 10:00
PROVIDERS: ATTEND Obstetrics & Gynecology
DX: N87.9 Dysplasia of cervix uteri, unspecified (principal); F41.9 Anxiety disorder, unspecified; I10 Essential (primary) hypertension; F32.9 Major depressive disorder, single episode, unspecified; E66.9 Obesity, unspecified; Z68.34 Body mass index [BMI] 34.0-34.9, adult; Z79.899 Other long term (current) drug therapy; Z90.49 Acquired absence of other specified parts of digestive tract; Z98.890 Other specified postprocedural states; Z91.011 Allergy to milk products
CPT/HCPCS: 36415; 58260; 80053; 84703; 85025; 85027; 86850; 86900; 86901; 88307; A9270; J0131; J0330; J0690; J1100; J1650; J1885; J1940; J2001; J2250; J2270; J2370; J2704; J2765; J3010; J3490; J7120; 00944; J2405